=== PATIENT | male | born 1945 | race Two or more races ===

== ENCOUNTER 2019-01-16 14:40 | Outpatient (CLI) | payer OTHER | END 2019-01-16 14:44 | disposition home or self-care (01) | LOC: RAD 501 14:40 | DX: R91.8 Other nonspecific abnormal finding of lung field (principal) ==

== ENCOUNTER 2019-08-31 08:10 | Inpatient (IN) | payer OTHER ==
[~2019-08-31] VITALS: Ht 177.8 cm; Wt 93.0 kg
[2019-08-31] MEDS ORDERED: LIPITOR20 MG (08:25)
[2019-08-31] MEDS ORDERED: COZAAR50 MG (08:25)
[2019-08-31] MEDS ORDERED: LEXAPRO20 MG (08:25)
[2019-08-31] MEDS ORDERED: ASPIR 8181 MG (08:25)
== END 2019-09-04 12:51 | disposition home or self-care (01) | DRG 438 ==
LOC: ER 08:10 → MEDJ 09-01 11:23
PROVIDERS: ADMIT Student in an Organized Health Care Education/Training Program
PROC: BW21Y0Z Computerized Tomography (CT Scan) of Abdomen and Pelvis using Other Contrast, Unenhanced and Enhanced (ICD-10-PCS; principal; 2019-09-01)
PROC: BW40ZZZ Ultrasonography of Abdomen (ICD-10-PCS; 2019-09-01)
PROC: B246ZZZ Ultrasonography of Right and Left Heart (ICD-10-PCS; 2019-09-02)
DX: K85.80 Other acute pancreatitis without necrosis or infection (principal); A41.9 Sepsis, unspecified organism; J90 Pleural effusion, not elsewhere classified; K76.0 Fatty (change of) liver, not elsewhere classified; I08.1 Rheumatic disorders of both mitral and tricuspid valves; I10 Essential (primary) hypertension